=== PATIENT | female | born 1930 | race African-American/Black ===

== ENCOUNTER 2018-12-16 10:39 | Outpatient (CLI) | payer MEDICARE, MEDICAID ==
--- NOTE | 2018-12-16 11:48 | HP ---
HISTORY OF PRESENT ILLNESS: Ms. Vneice Taylor is a very pleasant 88-year-old, accompanied by her daughter, who presents to [facility] for evaluation of an ulceration over the medial aspect of the right second toe at the base of the right second toe in between the first and second digits of the right foot. The patient's daughter states that her mother has "crippling arthritis." She states that because of her history of diabetes mellitus, she checked her mother's feet on a regular basis. She states that she noted a wound, the size of a pinhole and was referred to Podiatry. She states that as per Podiatry, she has been treating the wound with iodine twice a day. She states that she also has been placing gauze between the first and second digits of the right foot for offloading of the ulceration. Home Health has also been assisting the patient with dressing changes. The patient's daughter states that a few weeks ago, she noticed that the ulceration appeared to be increasing in its depth. At this time, the patient was referred to the [facility]ound Center for further evaluation and treatment. PAST MEDICAL HISTORY: 1. Hypertension. 2. Arthritis. 3. Diabetes mellitus. 4. Anemia. PAST SURGICAL HISTORY: Cholecystectomy. MEDICATIONS: 1. Lovastatin. 2. Ferrous sulfate. 3. Hydralazine. 4. Januvia. 5. Lisinopril/hydrochlorothiazide. 6. Humulin. ALLERGIES: NO KNOWN DIAGNOSED ALLERGY. SOCIAL HISTORY: Social history is negative for tobacco or EtOH use. FAMILY HISTORY: Family history is significant for coronary artery disease. The patient's father was diagnosed with coronary artery disease. Family history is negative for diabetes mellitus. PHYSICAL EXAMINATION: VITAL SIGNS: Temperature 98.1, pulse 67, respirations 20, blood pressure 138/66. Accu-Chek 176. GENERAL: An 88-year-old female sitting on table in examination room, in no acute distress. HEENT: Normocephalic and atraumatic. NECK: No nuchal rigidity. CHEST: Clear to auscultation. CV: Regular rate and rhythm. ABDOMEN: Soft. EXTREMITIES: An ulceration between the right first and second digits is present over the medial aspect of the right second toe at the base of the toe. The dimensions of the wound are approximately 0.5 x 0.3 cm. The tendon is visible within the margins of the wound. No purulent drainage is associated with the wound. No erythema of the skin surrounding the wound is present. Maceration of the skin of the periwound is noted. A dorsalis pedis pulse is faintly palpable on the right. No significant edema of the right foot is present on exam today. Very little to no granulation tissue is present within the wound margins. Undermining at the periphery of the wound is eliminated with an excisional full-thickness debridement with the use of scissors. NEURO: Grossly nonfocal. ASSESSMENT AND PLAN: 1. Ulceration of right second toe as described above. Dressing changes of Multidex powder and gauze will be initiated today. These dressing changes are to be performed on a daily basis after cleansing and irrigation with the assistance of Home Health and the patient's daughter. Plain films of the right foot will be obtained today to look for findings suggestive of osteomyelitis. I have explained to the patient and her daughter that further imaging will be obtained if necessary depending upon the results of the plain films. No antibiotics will be prescribed today based upon the appearance of the wound. I will also discuss the treatment plan with Dr. Salazar. I will see Ms. Taylor again in 2 weeks. Arrangements will also be made for fitting with diabetic shoes with inserts. The patient and her daughter understand and are in agreement with the preceding treatment plan. 2. Hypertension. 3. Arthritis. 4. Diabetes mellitus. The patient's Accu-Chek in clinic today is 176. The patient has been told that for optimal wound healing, her blood glucoses should remain below 150. 5. Anemia. Job ID: [id number]
--- NOTE | 2018-12-16 14:04 | RAD ---
RIGHT FOOT THREE VIEWS: HISTORY: Chronic wound. Possible osteomyelitis. FINDINGS: The bones are osteopenic. Pes planus. There is flattening of the talar dome with degenerative rasmussen e at the tibiotalar joint. Degenerative changes in the intertarsal and tarsometatarsal joints. Singh ux valgus deformity at the first MTP joint. No definite lytic or destructive osseous process identified. IMPRESSION: Osteopenia with degenerative changes, as described. No definite evidence of osteomyelitis identified by plain film. POS: [facility]
[2018-12-16] MEDS ORDERED: Lidocaine 2% PF 100 mg/5 ml Syringe ONE (15:00)
== END 2018-12-16 10:40 | disposition home or self-care (01) ==
LOC: WCC 10:39 → RAD 10:40
PROVIDERS: ATTEND Family Medicine
DX: S91.301A Unspecified open wound, right foot, initial encounter (principal); E11.9 Type 2 diabetes mellitus without complications; M85.871 Other specified disorders of bone density and structure, right ankle and foot; M19.071 Primary osteoarthritis, right ankle and foot
CPT/HCPCS: 11042; 73630; G0463; 99203; J2001

== ENCOUNTER 2019-01-01 10:33 | Outpatient (CLI) | payer MEDICARE, MEDICAID ==
[~2019-01-01 10:33] MED LIST: Lidocaine 2% 11 ML SYR ONE; Sodium Chloride 0.9% 15 ML NEB ONE
--- NOTE | 2019-01-01 11:54 | PRG ---
DATE OF SERVICE: 01/01/2019 HISTORY: Ms. Venice Taylor is a very pleasant 88-year-old, accompanied by her daughter, who presents to the [facility]ound Center for evaluation of an ulceration over the medial aspect of the right second toe at the base of the right second toe in between the first and second digits of the right foot. The patient's daughter previously stated that her mother has "crippling arthritis." She stated that because of her history of diabetes mellitus, she checked her mother's feet on a regular basis. She stated that she noted a wound, the size of a pinhole and was referred to Podiatry. She stated that as per Podiatry, she treated the wound with iodine twice a day. She stated that she also had been placing gauze between the first and second digits of the right foot for offloading of the ulceration. [facility] had also been assisting the patient with dressing changes when the patient initially presented to the Wound Center. A few weeks prior to the patient's initial visit to the Wound Center, the patient's daughter stated she noted that the ulceration appeared to be increasing in its depth. At this time, the patient was referred to the Wound Center for further evaluation and treatment. PHYSICAL EXAMINATION: VITAL SIGNS: Temperature 98.4, pulse 68, respirations 19, and blood pressure 147/68. Accu-Chek 135. EXTREMITIES: An ulceration between the right first and second digits is present over the medial aspect of the right second toe at the base of the toe. The dimensions of the wound are approximately 0.5 x 0.3 cm. The dimensions of the wound at the time of the patient's last visit were also approximately 0.5 x 0.3 cm. Tendon is again visible within the margins of the wound. No purulent drainage is associated with the wound. No erythema of the skin surrounding the wound is present. Maceration of the skin of the periwound is noted. No significant edema of the right foot is present on exam today. Nonviable tissue present within the wound margins was debrided with an excisional full-thickness debridement. ASSESSMENT AND PLAN: 1. Ulceration of right second toe as described above. Dressing changes of Multidex powder and gauze will be discontinued. Dressing changes of Silvercel and gauze will be initiated today. These dressing changes are to be performed on a daily basis after cleansing and irrigation with the assistance of Home Health and the patient's daughter. MRI of the right foot will be obtained to look for findings suggestive of osteomyelitis. I will also discuss the treatment plan with Dr. Salazar as per the patient's request. I will see Ms. Taylor again after MRI of the right foot has been obtained. The patient has been seeing by the meat butcher today for fitting with diabetic shoes with inserts. 2. Hypertension. 3. Arthritis. 4. Diabetes mellitus. The patient's Accu-Chek in clinic today is 135. The patient has been reminded that for optimal wound healing, her blood glucoses should remain below 150. 5. Anemia. Job ID: [id number]
== END 2019-01-01 10:34 | disposition home or self-care (01) ==
LOC: WCC 10:33
PROVIDERS: ATTEND Family Medicine
DX: E11.621 Type 2 diabetes mellitus with foot ulcer (principal); L97.519 Non-pressure chronic ulcer of other part of right foot with unspecified severity; I10 Essential (primary) hypertension; M19.90 Unspecified osteoarthritis, unspecified site; D64.9 Anemia, unspecified
CPT/HCPCS: A4218

== ENCOUNTER 2019-01-15 13:04 | Outpatient (CLI) | payer MEDICARE, MEDICAID ==
--- NOTE | 2019-01-15 15:47 | MRI ---
MRI OF THE RIGHT FOREFOOT: DATE: 01/15/2019. PROVIDED CLINICAL HISTORY: Wound at 1st-2nd digit interspace. FINDINGS: There is diminished signal alteration on T1 weighted sequences and increased signal intensity on flui d-sensitive sequences involving the proximal aspects of the 2nd digit proximal phalanx. Regional mar row signal appears otherwise normal. There is metatarsus primum varus and hallux valgus. Alignment appears otherwise anatomic. Joint spaces appear preserved. No regional joint effusion is evident. There is generalized intrinsic foot muscular atrophy with fatty replacement. No definite focal signa l alteration within the soft tissues to suggest abscess, with limitations due to the lack of IV contr ast material. There is no evidence for infectious tenosynovitis. The dorsal extensor implant or fle xor tendons appear intact. Nonspecific noncircumscribed fluid signal intensity within the subcutaneous adipose layer at the dors um of the foot. IMPRESSION: Signal alteration within the proximal aspects of the 2nd digit proximal phalanx, compatible with oste omyelitis given the provided clinical context. POS: [facility]
== END 2019-01-15 13:05 | disposition home or self-care (01) ==
LOC: BICMRI 13:04
PROVIDERS: ATTEND Family Medicine
DX: L97.512 Non-pressure chronic ulcer of other part of right foot with fat layer exposed (principal)

== ENCOUNTER 2019-02-13 13:13 | Outpatient (CLI) | payer MEDICARE, MEDICAID ==
--- NOTE | 2019-02-13 14:54 | ULT ---
Exam: Right lower extremity arterial vascular duplex with color and spectral Doppler imaging: HISTORY: Right lower 70 pain, diabetes Multiple areas of abnormal increased velocities including 176 cm/s in the common femoral artery, 184 cm/s in the profunda femoral artery, 144 cm/s in the superficial femoral artery, and 215 cm/s in the popliteal artery. Biphasic flow noted involving the common femoral artery, profunda femoral artery, superficial femoral artery, with monophasic flow involving the popliteal artery and caudal to this region. IMPRESSION: Extensive scattered abnormal high velocities and abnormal waveforms involving the entire right lower extremity, evidence for significant bilateral lower extremity arterial vascular disease. Depending upon level of concern, follow-up abdominal and bilateral lower extremity CT angiogram and r unoff CT angiogram might be considered.
--- NOTE | 2019-02-13 15:57 | RAD ---
RIGHT FOOT RADIOGRAPHS THREE VIEWS: 02/13/19 PROVIDED CLINICAL HISTORY: Foot pain. FINDINGS: Comparison 12/16/18. Diffuse regional osteopenia. Vascular calcifications. Metatarsus primus varus and hallux valgus. Pes planus. Talonavicular subluxation. IMPRESSION: Pes planus and talonavicular subluxation. Findings can be seen in the setting of posterior tibialis t endon insufficiency. Consider MRI if indicated. POS: [facility]
== END 2019-02-13 13:14 | disposition home or self-care (01) ==
LOC: ULT 13:13
PROVIDERS: ATTEND Internal Medicine Infectious Disease
DX: E11.51 Type 2 diabetes mellitus with diabetic peripheral angiopathy without gangrene (principal); M86.271 Subacute osteomyelitis, right ankle and foot; E11.621 Type 2 diabetes mellitus with foot ulcer; L97.519 Non-pressure chronic ulcer of other part of right foot with unspecified severity; M21.41 Flat foot [pes planus] (acquired), right foot; S93.01XA Subluxation of right ankle joint, initial encounter
CPT/HCPCS: 36415; 80053; 85025; 86140; 93923